=== PATIENT | female | born 1980 | race Hispanic/Latino ===

== ENCOUNTER 2018-01-08 20:32 | Emergency (ER) | payer SELFPAY ==
[2018-01-08] MEDS ORDERED: Morphine 4 MG/ML VIAL ONE (20:51)
--- NOTE | 2018-01-08 21:24 | RAD ---
LEFT SHOULDER: 01/08/18 Three views. HISTORY: Injury with pain. There is a slightly comminuted fracture involving the distal clavicle. The AC joint is normally align ed. Humeral head is normally positioned. IMPRESSION: Fracture distal left clavicle. POS: [facility]
[2018-01-08] MEDS ORDERED: HYDROcodone/Acetaminophen 5/325 mg Tablet ONE (21:35)
== END 2018-01-08 21:42 | disposition home or self-care (01) ==
LOC: MADERS 20:32
DX: S42.032A Displaced fracture of lateral end of left clavicle, initial encounter for closed fracture (principal); W19.XXXA Unspecified fall, initial encounter
CPT/HCPCS: 96372; J2270